=== PATIENT | female | born 2000 | race Caucasian/White ===

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

== ENCOUNTER 2018-10-01 20:21 | Emergency (ER) | payer MEDICAID ==
[~2018-10-01] VITALS: Ht 154.9 cm; Wt 83.5 kg
[2018-10-01 20:34] VITALS: BP_SYST 149
--- NOTE | 2018-10-01 20:41 | NUR ---
Patient to ER bed 07 to gown for evaluation. Side rails up.
--- NOTE | 2018-10-01 20:45 | NUR ---
Pt complains of having a headache and feeling nauseous for the past few days. Pt denies fever, blurred vision. No other injuries/complaints per patient or noted.
--- NOTE | 2018-10-01 20:58 | NUR ---
ER Dr. Jones at bedside examining patient.
[2018-10-01 21:40] VITALS: BP_SYST 149
--- NOTE | 2018-10-01 21:40 | NUR ---
Patient given written and verbal discharge instructions and verbalizes understanding. ER MD discussed with patient the results and treatment provided. Patient in stable condition. ID arm band removed. Rx of Motrin and Zofran given. Patient educated on pain management and to follow up with PMD. Pain Scale 0. Opportunity for questions provided and answered. Medication side effect fact sheet provided.
[2018-10-01 21:41] LABS: BILIRUBIN,URINE NEGATIVE (NEGATIVE); BLOOD, URINE NEGATIVE (NEGATIVE); CLARITY/URINE SL HAZY (CLEAR); COLOR,URINE YELLOW (YELLOW); GLUCOSE,URINE NEGATIVE (NEGATIVE); KETONES,URINE NEGATIVE (NEGATIVE); LEUKOCYTE ESTERASE ,URINE NEGATIVE (NEGATIVE); NITRITE, URINE NEGATIVE (NEGATIVE); PH,URINE 6.5 (5.0-8.0); PROTEIN URINE NEGATIVE (NEGATIVE); UROBILINOGEN,URINE 0.2 (0.2-1.0)
== END 2018-10-01 21:40 | disposition home or self-care (01) ==
LOC: SED 20:21
DX: O26.891 Other specified pregnancy related conditions, first trimester (principal); R51 Headache; R11.0 Nausea; F41.9 Anxiety disorder, unspecified; F31.9 Bipolar disorder, unspecified; I10 Essential (primary) hypertension; Z88.8 Allergy status to other drugs, medicaments and biological substances; Z3A.01 Less than 8 weeks gestation of pregnancy
CPT/HCPCS: 81003; 81025; 99283

== ENCOUNTER 2018-12-30 19:23 | Emergency (ER) | payer MEDICAID ==
[~2018-12-30] VITALS: Ht 154.9 cm; Wt 87.1 kg
[2018-12-30 20:48] VITALS: BP_SYST 110
[2018-12-30 22:08] VITALS: BP_SYST 112
== END 2018-12-30 22:08 | disposition home or self-care (01) ==
LOC: SED 19:23
DX: L30.9 Dermatitis, unspecified (principal); F31.9 Bipolar disorder, unspecified; F41.9 Anxiety disorder, unspecified; I10 Essential (primary) hypertension; Z88.8 Allergy status to other drugs, medicaments and biological substances
CPT/HCPCS: 99283

== ENCOUNTER 2021-10-31 14:35 | Emergency (ER) | payer MEDICAID, SELFPAY ==
[~2021-10-31] VITALS: Ht 154.9 cm; Wt 95.3 kg
--- NOTE | 2021-10-31 15:05 | NUR ---
ER in tent examining patient.
--- NOTE | 2021-10-31 15:30 | NUR ---
Pt. bib fiance with c/o body aches, breast pain, and ARTHUR 10/10 X 2 days, pt. states her sister is Covid + but she has had no exposure to her
[2021-10-31 15:34] VITALS: BP_SYST 127
--- NOTE | 2021-10-31 16:15 | NUR ---
Patient to ER hallway bed for evaluation. Side rails up.
[2021-10-31] MEDS ORDERED: LISINOPRIL 10 MG TABLET (PRINIVIL) PO ONE (16:30)
[2021-10-31] MEDS ORDERED: KETOROLAC TROMETHAMINE 60 MG/2 ML VIAL IM ONE (17:45)
[2021-10-31] MEDS ORDERED: LISI20TA30 PO ×2 (19:10→19:15)
[2021-10-31 19:15] VITALS: BP_SYST 145
--- NOTE | 2021-10-31 19:15 | NUR ---
Patient given written and verbal discharge instructions and verbalizes understanding. ER MD discussed with patient the results and treatment provided. Patient in stable condition. ID arm band removed. Rx of LISINOPRIL given. Patient educated on pain management and to follow up with PMD. Pain Scale 0/10 Opportunity for questions provided and answered.
== END 2021-10-31 19:15 | disposition home or self-care (01) ==
LOC: SED 14:35
DX: I10 Essential (primary) hypertension (principal); R51.9 Headache, unspecified; Z88.8 Allergy status to other drugs, medicaments and biological substances; Z20.822 Contact with and (suspected) exposure to COVID-19
CPT/HCPCS: 36415; 87426; 93005; 96372; 99285; J1885

== ENCOUNTER 2024-06-03 16:02 | Emergency (ER) | payer MEDICAID ==
[~2024-06-03] VITALS: Ht 154.9 cm; Wt 93.0 kg
[~2024-06-03 16:02] MED LIST: HYDR-4175 TP; IBUP-1969 PO; LISI20TA30 PO; TRAM50TA2 PO
[2024-06-03 16:13] VITALS: BP_SYST 121; PULSE 77; RESP 18; TEMP 97.7; O2SAT 99
[2024-06-03] MEDS ORDERED: BACITRACIN 1 GM OINT TP ONE (17:44)
[2024-06-03 17:51] VITALS: BP_SYST 121; PULSE 77; RESP 18; TEMP 97.7; O2SAT 99
== END 2024-06-03 17:49 | disposition home or self-care (01) ==
LOC: SED 16:02
DX: I86.8 Varicose veins of other specified sites (principal); I10 Essential (primary) hypertension; F41.9 Anxiety disorder, unspecified; F32.A Depression, unspecified; Z88.6 Allergy status to analgesic agent; Z79.899 Other long term (current) drug therapy; Z79.2 Long term (current) use of antibiotics
CPT/HCPCS: 99282